=== PATIENT | male | born 1990 | race Caucasian/White ===

== ENCOUNTER 2020-04-24 06:25 | Emergency (ER) | payer MEDICAID, OTHER ==
[~2020-04-24] VITALS: Ht 165.1 cm; Wt 95.3 kg
[2020-04-24 06:30] VITALS: BP 145/70
--- NOTE | 2020-04-24 06:35 | NUR ---
PT TAKEN TO BED 12
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
--- NOTE | 2020-04-24 07:00 | NUR ---
REPORT RECEIVED FROM JAE QUIROZ FOR CONTINUITY OF CARE.
--- NOTE | 2020-04-24 07:18 | NUR ---
REPORT GIVEN TO STACIE QUIROZ FOR CONTINUITY OF CARE.
--- NOTE | 2020-04-24 07:25 | NUR ---
PT RESTING COMFORTABLY, BED LOCKED AND IN LOWEST POSITION, NO SIGNS OF DISTRESS.
[2020-04-24] MEDS ORDERED: SULFAMETH/TRIMETH DS 800/160MG 1 TAB PO ONE (07:30)
[2020-04-24] MEDS ORDERED: ACETAMINOPHEN 325 MG TAB PO ONE (07:30)
--- NOTE | 2020-04-24 07:38 | NUR ---
DR. BAGLEY AT BEDSIDE EVALUATING PT.
--- NOTE | 2020-04-24 07:43 | NUR ---
XRAY AT BEDSIDE
[2020-04-24 08:42] VITALS: BP 145/70
--- NOTE | 2020-04-24 08:42 | NUR ---
Patient discharged with v/s stable. Written and verbal after care instructions given and explained. Patient alert, oriented and verbalized understanding of instructions. Ambulatory with steady gait. All questions addressed prior to discharge. ID band removed. Patient advised to follow up with PMD. Rx of BACTRIM, MOTRIN given. Patient educated on indication of medication including possible reaction and side effects. Opportunity to ask questions provided and answered.
== END 2020-04-24 09:08 | disposition home or self-care (01) ==
LOC: MED 06:25 → EDUNIT# 06:25 → MED 09:08
DX: S93.602A Unspecified sprain of left foot, initial encounter (principal); L03.116 Cellulitis of left lower limb; Z88.0 Allergy status to penicillin; W22.8XXA Striking against or struck by other objects, initial encounter; Y93.89 Activity, other specified; Y92.89 Other specified places as the place of occurrence of the external cause; Y99.8 Other external cause status
CPT/HCPCS: 73630; 99283